=== PATIENT | male | born 1990 | race Caucasian/White ===

== ENCOUNTER 2018-04-08 05:55 | Day surgery (SDC) | payer OTHER ==
[2018-04-08] MEDS ORDERED: CEFAZOLIN 2 GM/50 ML (PMX) 50 ML IVPB (06:00)
[2018-04-08] MEDS ORDERED: LACTATED RINGER'S 1,000 ML IV* (06:00)
[2018-04-08] MEDS ORDERED: CEFAZOLIN 1 GM INJ (07:00)
[2018-04-08] MEDS ORDERED: FENTAnyl 50 MCG/ML VIAL (08:01)
[2018-04-08] MEDS ORDERED: LIDOCAINE 2% (SDV) 5 ML INJ (08:01)
[2018-04-08] MEDS ORDERED: PROPOFOL 20 ML (08:01)
[2018-04-08] MEDS ORDERED: MIDAZOLAM 1 MG/ML 2 ML INJ (08:01)
[2018-04-08] MEDS ORDERED: ROCURONIUM 50 MG INJ (08:01)
[2018-04-08] MEDS ORDERED: SUCCINYLCHOLINE CHLORIDE 100 MG/5 ML SYG IV (08:01)
[2018-04-08] MEDS ORDERED: ROPIVACAINE 0.5 % 30 ML VIAL (08:17)
[2018-04-08] MEDS: ROPIVACAINE 0.5 % 30 ML VIAL (09:51)
[2018-04-08] MEDS: LIDOCAINE 1% (MPF) 30 ML INJ (09:51)
[2018-04-08] MEDS ORDERED: ONDANSETRON 4 MG INJ (09:57)
[2018-04-08] MEDS ORDERED: SUGAMMADEX SODIUM 200 MG/2 ML VIAL IV (10:07)
[2018-04-08] MEDS ORDERED: NALOXONE (0.4 MG/ML) INJ IV (10:30)
[2018-04-08] MEDS ORDERED: HYDROmorphONE (0.2 MG/ML) 10ML SYG IV ×2 (10:30)
[2018-04-08] MEDS ORDERED: HYDROmorphONE 0.5 MG/0.5 ML SYG IV ×2 (10:30)
[2018-04-08] MEDS ORDERED: ONDANSETRON 4 MG INJ IV ×2 (10:30)
[2018-04-08] MEDS ORDERED: MEPERIDINE 25 MG INJ IV (10:30)
[2018-04-08] MEDS ORDERED: DIPHENHYDRAMINE 50 MG INJ IV ×2 (10:30)
[2018-04-08] MEDS ORDERED: FENTAnyl 50 MCG/ML VIAL IV ×2 (10:30)
== END 2018-04-08 12:10 | disposition home or self-care (01) ==
LOC: SDS 05:55
DX: T84.84XA Pain due to internal orthopedic prosthetic devices, implants and grafts, initial encounter (principal); Y83.8 Other surgical procedures as the cause of abnormal reaction of the patient, or of later complication, without mention of misadventure at the time of the procedure
CPT/HCPCS: 20680; 73000; 88300